=== PATIENT | male | born 1975 | race Two or more races ===

== ENCOUNTER 2020-07-03 20:31 | Emergency (ER) | payer MEDICAID ==
[~2020-07-03] VITALS: Ht 180.3 cm; Wt 99.8 kg
--- NOTE | 2020-07-03 20:33 | NUR ---
PT BIBSELF C/O ABD CRAMPING AFTER BEING D/C FROM [facility] FOR SMALL BOWEL OBSTRUCTION. PT AAOX4 BREATHING EVENLY AND UNLABORED. PT ADMITS TO HAVING A SMALL BM TODAY, BUT NO RELIEF AFTER. PT ATTACHED TO MONITOR AND POX. MD AT BEDSIDE FOR EVAL. PT GIVEN BLANKET AND CALLLIGHT WITHIN REACH
[2020-07-03] MEDS: FAMOTIDINE (20 MG) 20 MG TABLET PO ONE (21:00)
[2020-07-03] MEDS: MAG HYDROX/AL HYDROX/SIMETH 30 ML UDC PO ONE (21:00)
[2020-07-03] MEDS ORDERED: LIDOCAINE VISCOUS 2% UD 15 ML UDC ONE (21:00)
[2020-07-03] MEDS: LIDOCAINE VISCOUS 2% UD 15 ML UDC MM ONE (21:00)
[2020-07-03] MEDS ORDERED: MAG HYDROX/AL HYDROX/SIMETH 30 ML UDC ONE (21:00)
[2020-07-03] MEDS: KETOROLAC TROMETHAMINE INJ 30 MG/ML VIAL IM ONE (21:00)
[2020-07-03] MEDS ORDERED: KETOROLAC TROMETHAMINE INJ 30 MG/ML VIAL ONE (21:01)
[2020-07-03] MEDS ORDERED: FAMOTIDINE (20 MG) 20 MG TABLET ONE (21:01)
--- NOTE | 2020-07-03 21:15 | NUR ---
US AT BEDSIDE
[2020-07-03] MEDS ORDERED: FAMO20TA8 PO (21:33)
--- NOTE | 2020-07-03 21:40 | NUR ---
TAKEN TO RADIOLOGY
[2020-07-03] MEDS ORDERED: DIATR MEGLU/DIATRIZOATE SODIUM 120 ML BOTTLE (GASTROGRAPHIN) ONE (21:49)
[2020-07-03] MEDS: DIATR MEGLU/DIATRIZOATE SODIUM 30 ML BOTTLE (GASTROGRAPHIN) PO ONE (22:00)
--- NOTE | 2020-07-03 23:52 | NUR ---
BROUGHT BY RADIOLOGY TO CT
--- NOTE | 2020-07-04 00:04 | NUR ---
returned from radiology
--- NOTE | 2020-07-04 01:25 | NUR ---
Patient discharged to home in stable condition. Written and verbal after care instructions given. Patient verbalizes understanding of instruction. Pt ambulatory with a steady gait
[2020-07-04 01:32] VITALS: BP 125/86
== END 2020-07-04 01:25 | disposition home or self-care (01) ==
LOC: ER 20:37
DX: R14.0 Abdominal distension (gaseous) (principal); R11.0 Nausea; Z79.899 Other long term (current) drug therapy
CPT/HCPCS: 74176; 76705; 96372; 99285; J1885; Q9963 ×2

== ENCOUNTER 2020-07-31 17:21 | Emergency (ER) | payer MEDICAID ==
[~2020-07-31] VITALS: Ht 182.9 cm; Wt 99.8 kg
[~2020-07-31 17:21] MED LIST: FAMO20TA8 PO
[2020-07-31] MEDS ORDERED: CEPHALEXIN MONOHYDRATE 500 MG CAPSULE PO ONE (17:55)
[2020-07-31] MEDS ORDERED: LIDOCAINE 1% INJ 50 ML MDV IJ ONE (17:55)
[2020-07-31] MEDS ORDERED: TDAP [DIPH/PERTUSSIS/TET] 0.5 ML VIAL IM ONE (17:56)
[2020-07-31] MEDS: TDAP [DIPH/PERTUSSIS/TET] 0.5 ML VIAL IM ONE (18:00)
[2020-07-31] MEDS: LIDOCAINE 1% INJ 50 ML MDV IJ ONE (18:13)
[2020-07-31] MEDS: CEPHALEXIN MONOHYDRATE 500 MG CAPSULE PO ONE (18:14)
--- NOTE | 2020-07-31 18:25 | NUR ---
patient came in to the er c/o r hand laceration w/ a circular saw accident 1 hour ago. On room air, breathing evenly and unlabored. Kept comfortable, will continue to monitor accordingly.
[2020-07-31] MEDS ORDERED: HYDROCODONE/APAP 5/325MG TABLET ONE (18:38)
[2020-07-31] MEDS: HYDROCODONE/APAP 5/325MG TABLET PO ONE (18:40)
[2020-07-31] MEDS ORDERED: IBUP-1957 PO (19:17)
[2020-07-31] MEDS ORDERED: CEPH500C2 PO (19:17)
--- NOTE | 2020-07-31 19:40 | NUR ---
Patient discharged to home in stable condition. Written and verbal after care instructions given. Patient verbalizes understanding of instruction. Pt ambulatory with a steady gait
[2020-07-31] MEDS ORDERED: HYDR-4303 PO (19:43)
[2020-07-31 19:46] VITALS: BP 130/77
== END 2020-07-31 19:40 | disposition home or self-care (01) ==
LOC: ER 17:30
DX: S61.411A Laceration without foreign body of right hand, initial encounter (principal); W26.8XXA Contact with other sharp object(s), not elsewhere classified, initial encounter; Y93.89 Activity, other specified; Y92.89 Other specified places as the place of occurrence of the external cause; Y99.8 Other external cause status
CPT/HCPCS: 12002; 90471; 90715; 99283; A6403; J3490

== ENCOUNTER 2020-11-27 16:31 | Emergency (ER) | payer MEDICAID ==
[~2020-11-27] VITALS: Ht 180.3 cm; Wt 104.3 kg
[~2020-11-27 16:31] MED LIST changes: +CEPH500C2 PO; +HYDR-4303 PO; +IBUP-1957 PO
--- NOTE | 2020-11-27 17:35 | NUR ---
Patient presents in ED for diffuse abdominal pain, + nausea, diarrhea x 2 days. Patient alert and oriented x4 No respiratory distress noted. Awaiting MD levine.
[2020-11-27 18:10] LABS: BASOPHILS % (AUTO) 0.5 % (0.0-2.0); EOSINOPHILS % (AUTO) 2.8 % (0.0-6.0); HEMATOCRIT 44 % (39-51); HEMOGLOBIN 14.8 g/dL (13.5-17.5); LYMPHOCYTES # (AUTO) 2.1 K/uL (0.8-4.8); LYMPHOCYTES % (AUTO) 33.7 % (20.0-44.0); MEAN CORPUSCULAR HGB CONC 34 g/dl (31.0-36.0); MEAN CORPUSCULAR VOLUME 86 fL (80-96); MONOCYTES # (AUTO) 0.6 K/uL (0.1-1.30); MONOCYTES % (AUTO) 9.4 % (2.0-12.0); NEUTROPHILS # (AUTO) 3.4 K/uL (1.8-8.9); NEUTROPHILS % (AUTO) 53.6 % (43.0-81.0); PLATELET COUNT (AUTO) 196 K/uL (150-450); RED BLOOD CELL COUNT(AUTO) 5.12 MIL/uL (4.5-6.0); WHITE BLOOD COUNT (AUTO) 6.3 K/uL (4.3-11.0)
[2020-11-27 18:12] LABS: BILIRUBIN,URINE Negative (NEGATIVE); COLOR,URINE YELLOW (YELLOW); LEUKOCYTE ESTERASE ,URINE Negative (NEGATIVE); NITRITE, URINE Negative (NEGATIVE); PH,URINE 5.5 (5.0-8.0); PROTEIN,URINE Negative (NEGATIVE); UGLUCOSE Negative (NEGATIVE); UROBILINOGEN,URINE 0.2 EU/dL (0.2)
[2020-11-27 18:14] LABS: BACTERIA,URINE Rare /HPF (None Seen); RBC,URINE NONE SEEN /HPF (0-2); SQUAMOUS EPITHELIAL CELL,UR Few /HPF (None Seen); WBC,URINE NONE SEEN /HPF (0-3)
[2020-11-27 18:21] LABS: CALCIUM, SERUM 8.4 mg/dL (8.5-10.1); CREATININE 1.1 mg/dL (0.6-1.3); POTASSIUM 3.7 mmol/L (3.5-5.1)
[2020-11-27] MEDS ORDERED: MORPHINE SULFATE INJ 2 MG/ML DISP.SYRIN IV ONE (19:30)
[2020-11-27] MEDS ORDERED: MORPHINE SULFATE INJ 2 MG/ML DISP.SYRIN ONE (19:32)
[2020-11-27] MEDS ORDERED: DICY10CA37 PO (19:40)
--- NOTE | 2020-11-27 19:44 | NUR ---
Patient discharged to home in stable condition. Written and verbal after care instructions given. Patient verbalizes understanding of instruction. PT ambulatory with a steady gait. IV DC
[2020-11-27 20:14] VITALS: BP 120/70
== END 2020-11-27 19:45 | disposition home or self-care (01) ==
LOC: ER 17:48
DX: R10.84 Generalized abdominal pain (principal); Z98.890 Other specified postprocedural states; Z79.899 Other long term (current) drug therapy
CPT/HCPCS: 36415; 74176; 80048; 81001; 85025; 96374; 99284; J2270

== ENCOUNTER 2021-02-24 18:56 | Emergency (ER) | payer MEDICAID ==
[~2021-02-24] VITALS: Ht 180.3 cm; Wt 99.8 kg
[~2021-02-24 18:56] MED LIST changes: +DICY10CA37 PO
--- NOTE | 2021-02-24 20:06 | NUR ---
Vasquez gleason in EDM - 02/24/21 at 2007 by KDABBAGHIA NACHO. R ANTERIOR LOWER RIB PAIN EXTENDING TO R LATERAL RIB AREA X 1 WEEK
--- NOTE | 2021-02-24 20:07 | NUR ---
BIBS C/O R ANTERIOR LOWER RIB PAIN EXTENDING TO R LATERAL RIB AREA X 1 WEEK. 7/10 INCREASED PAIN ON PALPATION DESCRIBED CRAMPING. DENIES ANY TRAUMA RELATED INJURIES. BREATHING EVEN ANDNUNLABORED 99% RA. PLACED ON MONITOR AND ALL V/S STABLE.
[2021-02-24] MEDS ORDERED: HYDROCODONE/APAP 5/325MG TABLET ONE (21:56)
[2021-02-24] MEDS: HYDROCODONE/APAP 5/325MG TABLET PO ONE (22:15)
--- NOTE | 2021-02-24 22:45 | NUR ---
BUILDING CLEANING SUPERVISOR AT BEDSIDE
[2021-02-24 22:59] LABS: ALBUMIN 4.1 g/dL (3.4-5.0); BILIRUBIN,TOTAL 0.2 mg/dL (0.2-1.0); CALCIUM, SERUM 9.5 mg/dL (8.5-10.1); CREATININE 1.1 mg/dL (0.6-1.3); POTASSIUM 4.3 mmol/L (3.5-5.1); TOTAL PROTEIN, SERUM 7.4 g/dL (6.4-8.2)
[2021-02-24 23:00] LABS: BASOPHILS % (AUTO) 0.5 % (0.0-2.0); EOSINOPHILS % (AUTO) 3.6 % (0.0-6.0); HEMATOCRIT 44 % (39-51); HEMOGLOBIN 15.1 g/dL (13.5-17.5); LYMPHOCYTES # (AUTO) 2.9 K/uL (0.8-4.8); LYMPHOCYTES % (AUTO) 46.8 % (20.0-44.0); MEAN CORPUSCULAR HGB CONC 35 g/dl (31.0-36.0); MEAN CORPUSCULAR VOLUME 86 fL (80-96); MONOCYTES # (AUTO) 0.7 K/uL (0.1-1.30); MONOCYTES % (AUTO) 10.7 % (2.0-12.0); NEUTROPHILS # (AUTO) 2.4 K/uL (1.8-8.9); NEUTROPHILS % (AUTO) 38.4 % (43.0-81.0); PLATELET COUNT (AUTO) 201 K/uL (150-450); RED BLOOD CELL COUNT(AUTO) 5.06 MIL/uL (4.5-6.0); WHITE BLOOD COUNT (AUTO) 6.2 K/uL (4.3-11.0)
[2021-02-24 23:04] LABS: BILIRUBIN,URINE NEGATIVE (NEGATIVE); COLOR,URINE YELLOW (YELLOW); LEUKOCYTE ESTERASE ,URINE NEGATIVE (NEGATIVE); NITRITE, URINE NEGATIVE (NEGATIVE); PROTEIN,URINE NEGATIVE (NEGATIVE); UGLUCOSE NEGATIVE (NEGATIVE); UROBILINOGEN,URINE 0.2 EU/dL (0.2)
--- NOTE | 2021-02-25 00:30 | NUR ---
Patient discharged to home in stable condition. Written and verbal after care instructions given. Patient verbalizes understanding of instruction.
[2021-02-25 00:33] VITALS: BP 150/82
== END 2021-02-25 00:33 | disposition home or self-care (01) ==
LOC: ER 18:58
DX: R10.11 Right upper quadrant pain (principal)
CPT/HCPCS: 36415; 76700-TC; 80053-TC; 83690-TC; 85025-TC

== ENCOUNTER 2021-09-18 17:43 | Emergency (ER) | payer BC, OTHER ==
--- NOTE | 2021-09-18 19:58 | NUR ---
LEFT WITHOUT BEING SEEN
== END 2021-09-18 19:59 | disposition left against medical advice (07) ==
LOC: ER 17:58
DX: Z53.21 Procedure and treatment not carried out due to patient leaving prior to being seen by health care provider (principal)